=== PATIENT | female | born 2000 ===

== ENCOUNTER 2018-01-18 14:32 | Inpatient (IN) | payer MEDICAID ==
[2018-01-18 15:05] VITALS: BMI 35.5
[2018-01-18] MEDS ORDERED: Sodium Chloride 0.9% 1,000 ML IV ONE (15:34)
--- NOTE | 2018-01-18 18:18 | CT ---
PROCEDURE: CT Abdomen and Pelvis without Oral or IV contrast. HISTORY: right sided pain COMPARISON: None available. TECHNIQUE: Contiguous axial images of the abdomen and pelvis. No oral or IV contrast administered. Coronal and Sagittal reformats generated and reviewed. Radiation dose: Total exam DLP = 692.4 mGy-cm. This CT exam was performed using one or more of the following dose reduction techniques: Automated exposure control, adjustment of the mA and/or kV according to patient size, and/or use of iterative reconstruction technique. FINDINGS: There is limited evaluation of the solid organs without the administration of IV contrast. LOWER THORAX: No visible consolidation, pleural effusion, or pneumothorax. Small hiatal hernia with evidence of gastroesophageal reflux. LIVER: Unremarkable unenhanced appearance. GALLBLADDER AND BILE DUCTS: Unremarkable unenhanced appearance. PANCREAS: Unremarkable unenhanced appearance. SPLEEN: Unremarkable unenhanced appearance. ADRENALS: Unremarkable unenhanced appearance. KIDNEYS AND URETERS: No hydronephrosis or obstructing renal calculus. BLADDER: The urinary bladder appears unremarkable. REPRODUCTIVE: Uterus appears heterogeneous with punctate regions of hyperdensity. Pelvic ultrasound may be considered if indicated. APPENDIX: The presumed appendix appears dilated with right lower quadrant inflammatory changes evident; findings appear consistent with acute appendicitis. Prominent pericecal lymph nodes. BOWEL: Gastric wall thickening may be exaggerated by nondistention. Lack of oral contrast limits evaluation for bowel pathology. The bowel loops appear within normal limits of caliber without evidence of intestinal obstruction. PERITONEUM: Small pelvic free fluid. No definite free air. LYMPH NODES: No bulky lymphadenopathy identified. VASCULATURE: No atherosclerotic calcification the aorta. No aortic aneurysm. BONES: No acute osseous abnormality is detected. OTHER FINDINGS: Small fat containing umbilical hernia measures approximately 7 mm in transverse dimension. IMPRESSION: The presumed appendix appears dilated with right lower quadrant inflammatory changes evident; findings appear consistent with acute appendicitis. Prominent pericecal lymph nodes. Correlate clinically including white count and physical exam. Small pelvic free fluid. Uterus appears heterogeneous with punctate regions of hyperdensity. Pelvic ultrasound may be considered if indicated. Gastric wall thickening may be exaggerated by nondistention. Correlate clinically. Small hiatal hernia with evidence of gastroesophageal reflux. Findings discussed with CULLEN White on 01/18/18 at 6:05 p.m.
[2018-01-18] MEDS ORDERED: Piperacillin/Tazobact 3.375 gm 100 ML IV STA (18:27)
[2018-01-18] MEDS ORDERED: Piperacillin/Tazobact 3.375 gm 100 ML IVPB ONE (18:35)
--- NOTE | 2018-01-18 18:49 | C.PDOC ---
History Of Present Illness 17 year old female who is 21 days (, no complications) presents to the ED for evaluation of right-sided abdominal pain that began last night. (+) decreased appetite. Denies fever,chest pain, sob, vomiting, nausea, dysuria, urinary frequency, and any other associated symptoms. <Deborah Marcelo - Last Filed: 01/18/18 19:31> History Per: Patient History/Exam Limitations: no limitations Onset/Duration Of Symptoms: Hrs Current Symptoms Are (Timing): Still Present <Deborah Marcelo - Last Filed: 01/18/18 19:31> <Delicia Moreno - Last Filed: 01/18/18 21:22> Time Seen by Provider: 01/18/18 15:17 Chief Complaint (Nursing): Abdominal Pain Past Medical History Reviewed: Historical Data, Nursing Documentation, Vital Signs Vital Signs: Last Vital Signs Temp 98.7 F 01/18/18 14:56 Pulse 70 01/18/18 14:56 Resp 18 01/18/18 14:56 BP 130/86 01/18/18 14:56 Pulse Ox 99 01/18/18 14:56 Family History: States: Unknown Family Hx - Social History Hx Alcohol Use: No Hx Substance Use: No - Immunization History Hx Tetanus Toxoid Vaccination: No Hx Influenza Vaccination: No Hx Pneumococcal Vaccination: No <Deborah Marcelo - Last Filed: 01/18/18 19:31> Vital Signs: Last Vital Signs Temp 98.6 F 01/18/18 18:48 Pulse 65 01/18/18 18:48 Resp 16 01/18/18 18:48 BP 134/83 01/18/18 18:48 Pulse Ox 99 01/18/18 19:34 <Delicia Moreno - Last Filed: 01/18/18 21:22> Review Of Systems Except As Marked, All Systems Reviewed And Found Negative. Constitutional: Negative for: Fever, Chills Gastrointestinal: Positive for: Abdominal Pain (right-sided.). Negative for: Nausea, Vomiting Genitourinary: Negative for: Dysuria, Frequency <Deborah Marcelo - Last Filed: 01/18/18 19:31> Physical Exam - Physical Exam Appears: Well, Non-toxic, No Acute Distress Skin: Normal Color, Warm, Dry, Other ( section incision: healed. no discharge. no erythema.) Head: Atraumatic, Normacephalic Eye(s): bilateral: Normal Inspection, EOMI Oral Mucosa: Moist Neck: Normal ROM, Supple Chest: Symmetrical, No Deformity Cardiovascular: Rhythm Regular Respiratory: Normal Breath Sounds, No Rales, No Rhonchi, No Wheezing Gastrointestinal/Abdominal: Soft, Tenderness (to the right lower quadrant. ), No Distention, No Rebound, No Other ((-) no tenderness to the pelvic region. ) Back: No CVA Tenderness, No Vertebral Tenderness Neurological/Psych: Oriented x3, Normal Speech <Deborah Marcelo - Last Filed: 01/18/18 19:31> ED Course And Treatment - Laboratory Results Result Diagrams: 01/18/18 18:43 01/18/18 18:43 O2 Sat by Pulse Oximetry: 99 (RA) Pulse Ox Interpretation: Normal - CT Scan/US CT ABD/Pelvis Other Rad Studies (CT/US): Read By Radiologist CT/US Interpretation: FINDINGS: There is limited evaluation of the solid organs without the administration of IV contrast. LOWER THORAX: No visible consolidation, pleural effusion, or pneumothorax. Small hiatal hernia with evidence of gastroesophageal reflux. LIVER: Unremarkable unenhanced appearan ce. GALLBLADDER AND BILE DUCTS: Unremarkable unenhanced appearance. PANCREAS: Unremarkable unenhanced appearance. SPLEEN: Unremarkable unenhanced appearance. ADRENALS: Unremarkable unenhanced appearance. KIDNEYS AND URETERS: No hydronephrosis or obstructing renal calculus. BLADDER: The u rinary bladder appears unremarkable. REPRODUCTIVE: Uterus appears heterogeneous with punctate regions of hyperdensity. Pelvic ultrasound may be considered if indicated. APPENDIX: The presumed appendix appears dilated with right lower quadrant inflammatory changes evident; findings appear consistent with acute appendicitis. Prominent pericecal lymph nodes. BOWEL: Gastric wall thickening may be exaggerated by nondistention. Lack of oral contrast limits evaluation for bowel pathology. The bowel loops appear within normal limits of caliber without evidence of intestinal obstruction. PERITONEUM: Small pelvic free fluid. No definite free air. LYMPH NODES: No bulky lymphadenopathy iden tified. VASCULATURE: No atherosclerotic calcification the aorta. No aortic aneurysm. BONES: No acute osseous abnormality is detected. OTHER FINDINGS: Small fat containing umbilical hernia measures approximately 7 mm in transverse dimension. IMPRESSION: The presumed appendix appears dilated with right lower quadrant inflammatory changes evident; findings appear consistent with acute appendicitis. Prominent pericecal lymph nodes. Correlate clinically including white count and physical exam. Small pelvic free fluid. Uterus appears heterogeneous with punctate regions of hyperdensity. Pelvic ultrasound may be considered if indicated. Gastric wall thickening may be exaggerated by nondis tention. Correlate clinically. Small hiatal hernia with evidence of gastroesophageal reflux. Findings discussed with CULLEN White on 01/18/18 at 6:05 p.m. Progress Note: Pt refused contrast. CT evaluated. Zosyn ordered. Case discussed with resident services director, who will come see pt. Case endorsed to Dr Moreno pending surgical evaluation. <Deborah Marcelo - Last Filed: 01/18/18 19:31> - Laboratory Results Result Diagrams: 01/18/18 18:43 01/18/18 18:43 <Delicia Moreno - Last Filed: 01/18/18 21:22> Medical Decision Making Medical Decision Making: Plan: -CT ABD & Pelvis w/o contrast or IV. -Blood sent. -Zosyn -Toradol -Blood culture -Urine HCG -Urinalysis <Deborah Marcelo - Last Filed: 01/18/18 19:31> Medical Decision Makin:55- vice president of finance evaluated patient at bedside, patient will be admitted to Dr. Garcia's service. <Delicia Moreno - Last Filed: 01/18/18 21:22> Disposition - Disposition Disposition Time: 19:34 <Deborah Marcelo - Last Filed: 01/18/18 19:31> <Delicia Moreno - Last Filed: 01/18/18 21:22> - Disposition Disposition: HOSPITALIZED Condition: STABLE - Clinical Impression Clinical Impression: Appendicitis - PA / MEDICAL EXAMINER / Resident Statement MD/DO has reviewed & agrees with the documentation as recorded. - Scribe Statement The provider has reviewed the documentation as recorded by the Scribe (Emerita Pena) All medical record entries made by the Scribe were at my direction and p ersonally dictated by me. I have reviewed the chart and agree that the record accurately reflects my personal performance of the history, physical exam, medical decision making, and the department course for this patient. I have also personally directed, reviewed, and agree with the discharge instructions and disposition. <Deborah Marcelo - Last Filed: 01/18/18 19:31>
[2018-01-18 18:51] LABS: BASO % 0.3 % (0.0-2.0); EOS # 0.2 K/uL (0.0-0.7); EOS % 1.4 % (0.0-4.0); HEMOGLOBIN 12.7 g/dL (11.0-16.0); LYMPH # 2.4 K/uL (1.0-4.3); LYMPH % 15.6 % (20.0-40.0); MEAN CELL VOLUME 86.8 fL (81.0-99.0); MEAN CORPUSCULAR HEMOGLOBIN 28.1 pg (27.0-31.0); MEAN CORPUSCULAR HGB CONC 32.4 g/dL (33.0-37.0); MEAN PLATELET VOLUME 9.6 fL (7.2-11.7); MONO # 0.9 K/uL (0.0-0.8); MONO % 5.8 % (0.0-10.0); NEUT % 76.9 % (50.0-75.0); NRBC % 0.1 % (0.0-2.0); RBC 4.52 Mil/uL (3.80-5.20); RED CELL DISTRIBUTION WIDTH 15.1 % (11.5-14.5); WHITE BLOOD COUNT 15.6 K/uL (4.8-10.8)
[2018-01-18 19:01] LABS: ALB/GLOB RATIO 1.3 (1.0-2.1); ALBUMIN 4.1 g/dL (3.5-5.0); ALT/SGPT 34 U/L (9-52); AST/SGOT 20 U/L (14-36); BLOOD UREA NITROGEN 6 mg/dL (7-17); GFR NON-AFRICAN AMERICAN > 60; LIPASE 29 U/L (23-300)
--- NOTE | 2018-01-18 21:13 | CP.PCM.HP ---
History of Present Illness - History of Present Illness History of Present Illness: GENERAL SURGERY HISTORY AND PHYSICAL FOR DR. GARZON 17yo F with PMHx significant for 3 weeks ago, presents to the ED with RLQ pain. The pain began last night. Has decreased appetite and didn't eat anything all day. Denies nausea, vomiting, diarrhea, constipation. Patient had a 3 weeks ago at [place] due to patient request. Patient is breast feeding. PMHx: none Surgeries: 21 days ago, rectal surgery as infant Allergies: none Medications: none Social history: occasional etoh, denies tobacco or illicit drug use Present on Admission - Present on Admission Any Indicators Present on Admission: No Review of Systems - Review of Systems All systems: reviewed and no additional remarkable complaints except (as per HPI) Past Patient History - Past Social History Smoking Status: Never Smoked - PSYCHIATRIC Hx Substance Use: No - SURGICAL HISTORY Hx Surgeries: Yes Hx Section: Yes (Dec) Meds Allergies/Adverse Reactions: Allergies Allergy/AdvReac Type Severity Reaction Status Date / Time No Known Allergies Allergy Verified 01/18/18 14:55 Physical Exam - Constitutional Appears: Non-toxic, No Acute Distress - Head Exam Head Exam: ATRAUMATIC, NORMAL INSPECTION - Eye Exam Eye Exam: EOMI, Normal appearance - Respiratory Exam Respiratory Exam: NORMAL BREATHING PATTERN. absent: Respiratory Distress - Cardiovascular Exam Cardiovascular Exam: +S1, +S2 - GI/Abdominal Exam GI & Abdominal Exam: Guarding, Soft, Tenderness (tender in RLQ). absent: Distended, Firm, Rebound, Rigid Additional comments: Pfannenstiel incision mostly well healed except for 2 very tiny openings, no drainage Results - Vital Signs Recent Vital Signs: Last Vital Signs Temp 98.6 F 01/18/18 18:48 Pulse 65 01/18/18 18:48 Resp 16 01/18/18 18:48 BP 134/83 01/18/18 18:48 Pulse Ox 99 01/18/18 19:34 - Labs Result Diagrams: 01/18/18 18:43 01/18/18 18:43 Labs: Laboratory Results - last 24 hr 01/18/18 01/18/18 18:43 18:43 WBC 15.6 H RBC 4.52 Hgb 12.7 Hct 39.2 MCV 86.8 MCH 28.1 MCHC 32.4 L RDW 15.1 H Plt Count 262 MPV 9.6 Neut % (Auto) 76.9 H Lymph % (Auto) 15.6 L [place] % (Auto) 5.8 Eos % (Auto) 1.4 Baso % (Auto) 0.3 Neut # (Auto) 12.0 H Lymph # (Auto) 2.4 [place] # (Auto) 0.9 H Eos # (Auto) 0.2 Baso # (Auto) 0.0 Sodium 139 Potassium 3.9 Chloride 103 Carbon Dioxide 26 Anion Gap 14 BUN 6 L Creatinine 0.7 Est GFR ( Amer) > 60 Est GFR (Non-Af Amer) > 60 Random Glucose 94 Calcium 9.0 Total Bilirubin 0.4 AST 20 ALT 34 Alkaline Phosphatase 65 Total Protein 7.3 Albumin 4.1 Globulin 3.1 Albumin/Globulin Ratio 1.3 Lipase 29 Assessment & Plan - Assessment and Plan (Free Text) Assessment: 17yo F with acute appendicitis - Afebrile, VSS - Leukocytosis WBC 15.6 - NPO - IV antibiotics - CT: Small fat containing umbilical hernia ~7 mm in transverse dimension. Presumed appendix appears dilated with RLQ inflammatory changes evident; findings appear consistent with acute appendicitis. Prominent pericecal lymph no faizan. Small hiatal hernia with evidence of gastroesophageal reflux. - Plan for laparoscopic appendectomy, possible open tomorrow - Procedure explained to pt, including risks and benefits, all questions were answered and written consent was obtained - Discussed plan with Dr. Radha Slaughter PGY-4
[2018-01-18] MEDS ORDERED: Lactated Ringer's 1,000 ML IV SCH (21:30)
[2018-01-18] MEDS: Piperacill/Tazo 2.25gm in Dex 2.25 GM/50 ML BAG IVPB SCH (22:49)
[2018-01-19] MEDS: Piperacill/Tazo 2.25gm in Dex 2.25 GM/50 ML BAG IVPB SCH ×4 (04:00→21:27)
[2018-01-19 06:27] LABS: INR 1.2; PROTHROMBIN TIME 12.8 SECONDS (9.7-12.2)
[2018-01-19 06:29] LABS: BASO % 0.3 % (0.0-2.0); EOS # 0.2 K/uL (0.0-0.7); EOS % 3.2 % (0.0-4.0); HEMOGLOBIN 11.8 g/dL (11.0-16.0); LYMPH # 2.6 K/uL (1.0-4.3); LYMPH % 39.2 % (20.0-40.0); MEAN CORPUSCULAR HEMOGLOBIN 28.9 pg (27.0-31.0); MEAN CORPUSCULAR HGB CONC 33.2 g/dL (33.0-37.0); MEAN PLATELET VOLUME 9.8 fL (7.2-11.7); MONO # 0.6 K/uL (0.0-0.8); MONO % 8.9 % (0.0-10.0); NEUT # 3.2 K/uL (1.8-7.0); NEUT % 48.4 % (50.0-75.0); NRBC % 0.1 % (0.0-2.0); RBC 4.07 Mil/uL (3.80-5.20); RED CELL DISTRIBUTION WIDTH 15.3 % (11.5-14.5); WHITE BLOOD COUNT 6.6 K/uL (4.8-10.8)
[2018-01-19 06:34] LABS: BLOOD UREA NITROGEN 5 mg/dL (7-17); CALCIUM 8.5 mg/dl (8.6-10.4); GFR NON-AFRICAN AMERICAN > 60
[2018-01-19 07:01] LABS: SQUAMOUS EPITHIAL 6 /hpf (0-5); URINE BACTERIA RARE (<OCC); URINE BILIRUBIN NEGATIVE (NEGATIVE); URINE CLARITY Hazy (Clear); URINE COLOR Yellow (YELLOW); URINE GLUCOSE (UA) NORMAL (Normal); URINE LEUKOCYTE ESTERASE 2+ Leu/uL (Negative); URINE PROTEIN NEGATIVE (NEGATIVE); URINE UROBILINOGEN NORMAL mg/dL (0.2-1.0)
[2018-01-19 07:03] LABS: HCG,QUALITATIVE URINE NEGATIVE (NEGATIVE)
[2018-01-19 07:12] LABS: URINE BLOOD NEGATIVE (NEGATIVE)
[2018-01-19] MEDS ORDERED: Propofol 10 mg/ml Inj (20 ML) ONE (07:48)
[2018-01-19] MEDS ORDERED: Lidocaine/Epinephrine 1% 1:100000 10 ML IJ ONE (07:53)
[2018-01-19] MEDS ORDERED: Bupivacaine 0.25% 20 ML INJ IJ ONE (07:53)
[2018-01-19] MEDS ORDERED: Rocuronium 10 mg/ml (5 ml) ONE (08:43)
[2018-01-19] MEDS ORDERED: Succinylcholine Chloride 20 mg/ml Syr (5 ml) IV ONE (08:43)
[2018-01-19] MEDS ORDERED: Midazolam 2 MG/2 ML VIAL ONE (08:54)
--- NOTE | 2018-01-19 08:58 | RAD ---
Date of service: 01/19/2018 HISTORY: pre-op eval COMPARISON: No prior. FINDINGS: LUNGS: Mild venous congestion. Prominent bibasilar breast and nipple shadows. PLEURA: No significant pleural effusion identified, no pneumothorax apparent. CARDIOVASCULAR: No aortic atherosclerotic calcification present. Normal cardiac size. OSSEOUS STRUCTURES: No significant abnormalities. VISUALIZED UPPER ABDOMEN: Normal. OTHER FINDINGS: None. IMPRESSION: Mild venous congestion. Prominent bibasilar breast and nipple shadows.
--- NOTE | 2018-01-19 10:23 | PCM.SURG1 ---
Surgeon's Initial Post Op Note - Surgeon's Notes Surgeon: Dr. Garcia Second Baller: Vee Lynne, PGY2; Viry OMS3 Pre-Operative Diagnosis: acute appendicitis Operative Findings: internal adhesions to peritoneum, thickened, inflammed appendix with adhesions Post-Operative Diagnosis: acute appendicitis Operation Performed: laparoscopic appendectomy Specimen/Specimens Removed: appendix Estimated Blood Loss: EBL {In ML}: 20 Date of Surgery/Procedure: 01/19/18 Time of Surgery/Procedure: 08:15
[2018-01-19] MEDS ORDERED: HYDROmorphone 0.5 mg/0.5 ml ISec IVP PRN (10:25)
[2018-01-19] MEDS ORDERED: Oxycodone/Acetaminophen 5/325 mg Tab PO PRN (10:30)
[2018-01-19] MEDS ORDERED: Lactated Ringer's 1,000 ML IV SCH (10:30)
[2018-01-19 16:46] VITALS: RESP 20
[2018-01-20] MEDS: Piperacill/Tazo 2.25gm in Dex 2.25 GM/50 ML BAG IVPB SCH ×2 (03:24→10:00)
[2018-01-20 07:25] LABS: BASO % 0.5 % (0.0-2.0); EOS # 0.2 K/uL (0.0-0.7); EOS % 2.7 % (0.0-4.0); HEMOGLOBIN 10.9 g/dL (11.0-16.0); LYMPH # 1.9 K/uL (1.0-4.3); LYMPH % 24.9 % (20.0-40.0); MEAN CORPUSCULAR HEMOGLOBIN 28.7 pg (27.0-31.0); MEAN PLATELET VOLUME 10.4 fL (7.2-11.7); MONO # 0.7 K/uL (0.0-0.8); MONO % 9.3 % (0.0-10.0); NEUT # 4.9 K/uL (1.8-7.0); NEUT % 62.6 % (50.0-75.0); RBC 3.78 Mil/uL (3.80-5.20); RED CELL DISTRIBUTION WIDTH 15.2 % (11.5-14.5); WHITE BLOOD COUNT 7.8 K/uL (4.8-10.8)
[2018-01-20 08:19] VITALS: BP 116/70; PULSE 79; TEMP 98.3; O2SAT 100
--- NOTE | 2018-01-20 10:04 | CP.PCM.DIS ---
Provider - Provider Date of Admission: 01/18/18 20:58 Attending physician: Jerome Garcia MD Consults: none Time Spent in preparation of Discharge (in minutes): 30 Diagnosis - Discharge Diagnosis (1) Appendicitis Status: Resolved Hospital Course - Lab Results Lab Results: Micro Results 01/18/18 18:30 Blood Blood Culture - Preliminary NO GROWTH AFTER 24 HOURS 01/18/18 18:43 Blood Blood Culture - Preliminary NO GROWTH AFTER 24 HOURS Most Recent Lab Values WBC 7.8 K/uL (4.8-10.8) 01/20/18 07:16 RBC 3.78 Mil/uL (3.80-5.20) L 01/20/18 07:16 Hgb 10.9 g/dL (11.0-16.0) L 01/20/18 07:16 Hct 32.9 % (34.0-47.0) L 01/20/18 07:16 MCV 87.0 fL (81.0-99.0) 01/20/18 07:16 MCH 28.7 pg (27.0-31.0) 01/20/18 07:16 MCHC 33.0 g/dL (33.0-37.0) 01/20/18 07:16 RDW 15.2 % (11.5-14.5) H 01/20/18 07:16 Plt Count 226 K/uL (130-400) 01/20/18 07:16 MPV 10.4 fL (7.2-11.7) 01/20/18 07:16 Neut % (Auto) 62.6 % (50.0-75.0) 01/20/18 07:16 Lymph % (Auto) 24.9 % (20.0-40.0) 01/20/18 07:16 [place] % (Auto) 9.3 % (0.0-10.0) 01/20/18 07:16 Eos % (Auto) 2.7 % (0.0-4.0) 01/20/18 07:16 Baso % (Auto) 0.5 % (0.0-2.0) 01/20/18 07:16 Neut # (Auto) 4.9 K/uL (1.8-7.0) 01/20/18 07:16 Lymph # (Auto) 1.9 K/uL (1.0-4.3) 01/20/18 07:16 [place] # (Auto) 0.7 K/uL (0.0-0.8) 01/20/18 07:16 Eos # (Auto) 0.2 K/uL (0.0-0.7) 01/20/18 07:16 Baso # (Auto) 0.0 K/uL (0.0-0.2) 01/20/18 07:16 PT 12.8 SECONDS (9.7-12.2) H 01/19/18 06:14 INR 1.2 01/19/18 06:14 APTT 41 SECONDS (21-34) H 01/19/18 06:14 Sodium 139 mmol/L (132-148) 01/19/18 06:14 Potassium 4.3 mmol/L (3.6-5.2) 01/19/18 06:14 Chloride 106 mmol/L (98-107) 01/19/18 06:14 Carbon Dioxide 26 mmol/L (22-30) 01/19/18 06:14 Anion Gap 11 (10-20) 01/19/18 06:14 BUN 5 mg/dL (7-17) L 01/19/18 06:14 Creatinine 0.7 mg/dL (0.7-1.2) 01/19/18 06:14 Est GFR ( Amer) > 60 01/19/18 06:14 Est GFR (Non-Af Amer) > 60 01/19/18 06:14 Random Glucose 94 mg/dL (65-105) 01/19/18 06:14 Calcium 8.5 mg/dl (8.6-10.4) L 01/19/18 06:14 Total Bilirubin 0.4 mg/dL (0.2-1.3) 01/18/18 18:43 AST 20 U/L (14-36) 01/18/18 18:43 ALT 34 U/L (9-52) 01/18/18 18:43 Alkaline Phosphatase 65 U/L (38-126) 01/18/18 18:43 Total Protein 7.3 g/dL (6.3-8.3) 01/18/18 18:43 Albumin 4.1 g/dL (3.5-5.0) 01/18/18 18:43 Globulin 3.1 gm/dL (2.2-3.9) 01/18/18 18:43 Albumin/Globulin Ratio 1.3 (1.0-2.1) 01/18/18 18:43 Lipase 29 U/L (23-300) 01/18/18 18:43 Urine Color Yellow (YELLOW) 01/19/18 06:49 Urine Clarity Hazy (Clear) 01/19/18 06:49 Urine pH 7.0 (5.0-8.0) 01/19/18 06:49 Ur Specific [place] 1.011 (1.003-1.030) 01/19/18 06:49 Urine Protein Negative mg/dL (NEGATIVE) 01/19/18 06:49 Urine Glucose (UA) Normal mg/dL (Normal) 01/19/18 06:49 Urine Ketones Negative mg/dL (NEGATIVE) 01/19/18 06:49 Urine Blood Negative (NEGATIVE) 01/19/18 06:49 Urine Nitrate Negative (NEGATIVE) 01/19/18 06:49 Urine Bilirubin Negative (NEGATIVE) 01/19/18 06:49 Urine Urobilinogen Normal mg/dL (0.2-1.0) 01/19/18 06:49 Ur Leukocyte Esterase 2+ Zak/uL (Negative) H 01/19/18 06:49 Urine WBC (Auto) 6 /hpf (0-5) H 01/19/18 06:49 Urine RBC (Auto) 2 /hpf (0-3) 01/19/18 06:49 Ur Squamous Epith Cells 6 /hpf (0-5) H 01/19/18 06:49 Urine Bacteria Rare (<OCC) 01/19/18 06:49 Urine HCG, Qual Negative (NEGATIVE) 01/19/18 06:49 - Hospital Course Hospital Course: 17yo F with PMHx significant for 3 weeks ago, presents to the ED with RLQ pain on 01/18/18. She had decreased appetite but denied nausea, vomiting, diarrhea, constipation. CT Abd/Pelvis showed: Small fat containing umbilical hernia ~7 mm in transverse dimension. Appendix appears dilated with RLQ inflammatory changes; findings appear consistent with acute appendicitis. Prominent pericecal lymph nodes. Small hiatal hernia with evidence of gastroesophageal reflux. Patient was taken to the OR on 01/19/18 for laparoscopic appendectomy. On POD#1, she was tolerating diet, voiding, having bowel function, ambulating, and requesting to go home. She was cleared for discharge home to follow up with Dr. Garcia. Patient instructed to pump and dump once due to receiving Percocet while in the hospital. She may resume breast feeding at home. Patient may take Tylenol PRN pain. Discharge Exam - Head Exam Head Exam: ATRAUMATIC, NORMAL INSPECTION - Respiratory Exam Respiratory Exam: NORMAL BREATHING PATTERN. absent: Respiratory Distress - Cardiovascular Exam Cardiovascular Exam: +S1, +S2 - GI/Abdominal Exam GI & Abdominal Exam: Soft, Tenderness (mild tenderness at laparoscopic incision sites). absent: Distended, Firm, Guarding, Rebound, Rigid - Neurological Exam Neurological exam: Alert, CN II-XII Intact, Oriented x3 - Psychiatric Exam Psychiatric exam: Normal Affect, Normal Mood - Skin Skin Exam: Dry, Warm Discharge Plan - Follow Up Plan Condition: GOOD Disposition: HOME/ ROUTINE Patient education suggested?: Yes Instructions: Appendectomy, Laparoscopic Surgery (DC) Additional Instructions: Patient is stable for discharge home. Patient is advised to call Dr. Garcia's office upon discharge to schedule an appointment for follow up in 10 days. Patient may take Tylenol as directed for pain. Patient is advised not to lift anything heavy for the next 4 weeks. Patient is encouraged to stay active, but not engage in strenuous activity. Patient may shower tomorrow. Do not pick at glue covering incisions, it will disappear in time. Patient should pump and dump once and then may resume normal breast feeding. Patient should call Dr. Garcia's office or return to the ED with any worsening of symptoms including but not limited to fevers >100.4, pain unresolved with medication, severe nausea/vomiting. Referrals: Jerome Garcia MD [Staff Provider] -
[2018-01-20] MEDS ORDERED: Pneumococcal 23-Valent Vaccine IM ONE (13:00)
[2018-01-20] MEDS ORDERED: Influenza Vaccine 60 MCG/0.5 ML SYR (3 yr & up) IM ONE (13:00)
--- NOTE | 2018-01-20 17:10 | PCM.OP ---
Operative Report - Operative Report Date of Surgery/Procedure: 01/19/18 Time of Surgery/Procedure: 08:15 Surgeon: Dr. Garcia Bridge Gang Worker: Vee Lynne PGY2 Anesthesia/Sedation: General endotracheal Pre-Operative Diagnosis: acute appendicitis Post-Operative Diagnosis: acute appendicitis Indication for Surgery: Pt came in with acute RLQ abdominal pain and concern for acute appendicitis on CT of the abdomen and pelvis Operative Findings: Thickened, inflamed appendix without perforation or abscess Procedure/Operation Description: Patient was brought into the OR on a stretcher, transferred to the table without complication. Anesthesia was induced, time out was performed, patient was prepped and draped in the standard sterile fashion. Local anesthesia was injected and supraumbilical incision was created, Veress needle inserted and abdomen was insufflated.Trochar with visiport was inserted into the incision, and camera was inserted into the abdomen. Suprapubic local was injected, incision created, and non-bladed trochar inserted under direct visualization. This process was repeated for LLQ trochar. Adhesions were found adhered to the peritoneum obstructing view of the RLQ and there were lysed from the peritoneum with the grasper. Attention was then turned to the RLQ, where thickened, erythematous appendix was identified. The mesoappendix was divided with a combination of surgical clips and endoscopic stapler, and then the appendix was divided from the cecum at the base with an endoscopic stapler. Appendix was placed in an endocatch bag. Surgical area and the pelvis were irrigated thoroughly and adequate hemostasis was confirmed. Entire abdomen was inspected and found negative for any further sign of pathology. Specimen was removed in its entirety and sent off the table. Trochars were removed. Incisions were closed and dermabond dressing applied to the incisions. Counts were correct. Patient was extubated and transferred out of the OR with no complications in fair condition. Estimated Blood Loss: 20 Complications: none Discharge & Condition: Fair
--- NOTE | 2018-01-20 23:57 | CARD ---
APPROVED REPORT Date of service: 01/19/2018 EKG Measurement Heart [id number] <Conclusion> Normal sinus rhythm Nonspecific ST abnormality Abnormal ECG
[2018-01-21] MEDS ORDERED: Pneumococcal 23-Valent Vaccine IM ONE (10:00)
[2018-01-21] MEDS ORDERED: Influenza Vaccine 60 MCG/0.5 ML SYR (3 yr & up) IM ONE (10:00)
== END 2018-01-20 14:17 | disposition home or self-care (01) | DRG 225 ==
LOC: C.ER 14:32 → C.3T 20:58
PROVIDERS: ADMIT Surgery; ATTEND Surgery
PROC: 0DTJ4ZZ Resection of Appendix, Percutaneous Endoscopic Approach (ICD-10-PCS; principal; 2018-01-19 07:45)
DX: K35.80 Unspecified acute appendicitis (principal); K21.9 Gastro-esophageal reflux disease without esophagitis; K44.9 Diaphragmatic hernia without obstruction or gangrene

== ENCOUNTER 2018-06-19 12:17 | Emergency (ER) | payer MEDICAID ==
[2018-06-19 12:17] VITALS: BMI 35.5
[2018-06-19 12:37] VITALS: O2SAT 100
[2018-06-19 13:55] LABS: HCG,QUALITATIVE URINE NEGATIVE (NEGATIVE)
[2018-06-19 13:57] LABS: SQUAMOUS EPITHIAL 1 /hpf (0-5); URINE BACTERIA OCC (<OCC); URINE BILIRUBIN NEGATIVE (NEGATIVE); URINE BLOOD NEGATIVE (NEGATIVE); URINE CLARITY Clear (Clear); URINE COLOR Yellow (YELLOW); URINE GLUCOSE (UA) NORMAL (Normal); URINE PROTEIN NEGATIVE (NEGATIVE); URINE UROBILINOGEN NORMAL mg/dL (0.2-1.0)
[2018-06-19 13:58] LABS: URINE LEUKOCYTE ESTERASE TRACE Leu/uL (Negative)
[2018-06-19 14:19] VITALS: BP 110/70; PULSE 84; RESP 20; TEMP 99
--- NOTE | 2018-06-19 14:33 | C.PDOC ---
History Of Present Illness 17 year old female presents to ED with complaint of dysuria that began today and diarrhea that she has had for the past 5 days. Patient also complaint of abdominal cramping and some streaks of blood upon wiping. She also notes irritation to her anal area that could have resulted from the diarrhea and has been applying Desitin. Patient denies fever, nausea, vomiting, vaginal bleeding, and vaginal discharge. Time Seen by Provider: 06/19/18 13:20 Chief Complaint (Nursing): Abdominal Pain History Per: Patient History/Exam Limitations: no limitations Onset/Duration Of Symptoms: Days (5) Current Symptoms Are (Timing): Still Present Location Of Pain/Discomfort: Diffuse Radiation Of Pain To:: None Quality Of Discomfort: Cramping Associated Symptoms: Diarrhea, Urinary Symptoms (dysuria). denies: Fever, Nausea, Vomiting Exacerbating Factors: None Alleviating Factors: None Abnormal Vaginal Bleeding: No Past Medical History Reviewed: Historical Data, Nursing Documentation, Vital Signs Vital Signs: Last Vital Signs Temp 99 F 06/19/18 14:18 Pulse 84 06/19/18 14:18 Resp 20 06/19/18 14:18 BP 110/70 06/19/18 14:18 Pulse Ox 100 06/19/18 14:18 - Medical History PMH: No Chronic Diseases Surgical History: No Surg Hx - [facility] Procedures RESECTION OF APPENDIX, PERCUTANEOUS ENDOSCOPIC APPROACH (01/18/18) Family History: States: Unknown Family Hx - Social History Hx Alcohol Use: Yes (occassionally) Hx Substance Use: No - Immunization History Hx Tetanus Toxoid Vaccination: No Hx Influenza Vaccination: No Hx Pneumococcal Vaccination: No Review Of Systems Constitutional: Negative for: Fever, Chills, Weakness Gastrointestinal: Positive for: Abdominal Pain, Diarrhea, Other (streaks of blood upon wiping, irritation to the anal area). Negative for: Nausea, Vomiting Genitourinary: Positive for: Dysuria. Negative for: Vaginal Discharge, Vaginal Bleeding Neurological: Negative for: Weakness, Numbness, Dizziness Physical Exam - Physical Exam Appears: Well, Non-toxic, No Acute Distress, Other (comfortable) Skin: Normal Color, Warm, Dry Head: Atraumatic, Normacephalic Neck: Normal ROM, Supple Chest: Symmetrical, No Deformity Cardiovascular: Rhythm Regular, No Murmur Respiratory: No Accessory Muscle Use, No Rales, No Rhonchi, No Wheezing Gastrointestinal/Abdominal: Soft, No Tenderness Rectal: No Hemorrhoids, Other (skin irritation around the anus, no active bleeding, no fissures) Neurological/Psych: Oriented x3, Normal Speech, Normal Cognition ED Course And Treatment - Laboratory Results Lab Results: Urine Color Yellow (YELLOW) 06/19/18 13:48 Urine Clarity Clear (Clear) 06/19/18 13:48 Urine pH 5.0 (5.0-8.0) 06/19/18 13:48 Ur Specific [place] 1.026 (1.003-1.030) 06/19/18 13:48 Urine Protein Negative mg/dL (NEGATIVE) 06/19/18 13:48 Urine Glucose (UA) Normal mg/dL (Normal) 06/19/18 13:48 Urine Ketones Negative mg/dL (NEGATIVE) 06/19/18 13:48 Urine Blood Negative (NEGATIVE) 06/19/18 13:48 Urine Nitrate Positive (NEGATIVE) H 06/19/18 13:48 Urine Bilirubin Negative (NEGATIVE) 06/19/18 13:48 Urine Urobilinogen Normal mg/dL (0.2-1.0) 06/19/18 13:48 Ur Leukocyte Esterase Trace Zak/uL (Negative) H 06/19/18 13:48 Urine WBC (Auto) 12 /hpf (0-5) H 06/19/18 13:48 Urine RBC (Auto) 2 /hpf (0-3) 06/19/18 13:48 Ur Squamous Epith Cells 1 /hpf (0-5) 06/19/18 13:48 Urine Bacteria Occ (<OCC) H 06/19/18 13:48 Urine HCG, Qual Negative (NEGATIVE) 06/19/18 13:48 Urine HCG, Qual Negative (NEGATIVE) 06/19/18 13:48 O2 Sat by Pulse Oximetry: 100 (in RA) Progress Note: Urine culture, UA, and U-preg ordered for patient. UA shows UTI. Paitent discharged home with antibiotics. Discussed results and plan with patient who expresses understanding. All questions answered and there is agreement with the plan to discharge home with instructions. Patient stable for discharge. Return if symptoms persist or worsen. Disposition Counseled Patient/Family Regarding: Studies Performed, Diagnosis, Need For Followup, Rx Given - Disposition Referrals: [facility] [Outside] Disposition: HOME/ ROUTINE Disposition Time: 14:30 Condition: STABLE Additional Instructions: FOLLOW UP WITH YOUR DOCTOR IN 1-2 DAYS DRINK PLENTY OF CLEAR FLUIDS RETURN TO ER IF SYMPTOMS WORSEN Prescriptions: Dicyclomine [Bentyl] 20 mg PO Q6 PRN #12 tab PRN Reason: ABDOMINAL CRAMPING Nitrofurantoin Macrocrystals [Macrobid] 1 cap PO BID #14 cap Instructions: Urinary Tract Infection, Adult (DC) Forms: [employer] (Ukrainian), School Excuse Print Language: SYRIAC - Clinical Impression Clinical Impression: UTI (urinary tract infection), Diarrhea, Anal irritation - Scribe Statement The provider has reviewed the documentation as recorded by the Scribe (Irma Floyd) All medical record entries made by the Scribe were at my direction and personally dictated by me. I have reviewed the chart and agree that the record accurately reflects my personal performance of the history, physical exam, medical decision making, and the department course for this patient. I have also personally directed, reviewed, and agree with the discharge instructions and disposition.
== END 2018-06-19 14:30 | disposition home or self-care (01) ==
LOC: C.ER 12:17
DX: N39.0 Urinary tract infection, site not specified (principal); R19.7 Diarrhea, unspecified; K62.89 Other specified diseases of anus and rectum